=== PATIENT | female | born 1995 | race Caucasian/White ===

== ENCOUNTER 2019-06-26 08:08 | Emergency (ER) | payer SELFPAY ==
[2019-06-26] VITALS (17 sets, daily range): BP systolic 95–145; BP diastolic 66–90; PULSE 74–138; RESP 16; TEMP 36.7; O2SAT 96–98
--- NOTE | 2019-06-26 08:33 | ED.GENADUL_ITS ---
Discharge Plan Disposition Patient Disposition: HOME Condition: Good Discharge Details Chief Complaint: Abd Prob Clinical Impression: Gastric ulcer Primary Care Provider: None,None ED Provider: Rhonda Castillo Home Meds and New Rx's Prescriptions: New omeprazole 40 mg capsule,delayed release(DR/EC) 40 mg PO DAILY Qty: 30 RF: 0 ondansetron HCl [Zofran] 4 mg tablet 4 mg PO Q8H Qty: 10 RF: 0 Continued medroxyprogesterone [Depo-Provera] 150 mg/mL Suspension 150 mg IM [id number] RF: 0 Discharge Instructions Instructions: Peptic Ulcer (ED) Additional Instructions: Avoid ibuprofen, Motrin, Aleve or Advil. Use Tylenol for discomfort if needed. Minimize alcohol and caffeine. Use medication as prescribed. In addition use Zantac [id number]. Follow-up with your primary care doctor for prompt reevaluation as discussed. Return for any alarming symptoms or worsening sooner if needed Medical Decision Making 23-year-old very pleasant female presents with no significant medical problems complaints of abdominal pain in the left upper quadrant and 5 days of vomiting several times per day. Light-colored stool. Patient reports increase in flatulence. On exam patient is well-appearing however has tenderness in the left upper quadrant as well as CVA tenderness on the left. Urine testing is negative. Discussed CT scan with the patient. Will CT scan as well as evaluate labs and urinalysis. Patient offered medications at this time and declines. Will flush with 1 L of IV fluid given patient's 5 days of vomiting and mild tachycardia which is noted. 0905 patient reports tightness in her throat and appears quite anxious after having IV dye push. Patient reports symptoms are significantly improved at this time. Has no change in her voice, itching, rash, wheezing, shortness of breath. Exam is benign. No wheezing on exam. No obvious edema in the throat. Discussed potential for allergic reaction versus side effect of IV dye push. Patient is feeling improved at this time. Discussed use of medications for allergic reaction and she prefers to wait as symptoms are improving. Patient reporting primarily dry mouth at this time. Offered ice chips. Vital signs stable and improved compared to initial vitals. Patient had ultimately no sign of allergic reaction after IV dye and required no interventions. Vital signs remained stable and symptoms entirely resolved Patient CT evaluation unremarkable per wet read, lab evaluation normal Patient ultimately was provided a GI cocktail which did entirely resolve her symptoms. I do feel likely this patient has a gastric ulcer after discussing at length she has been using increased ibuprofen likely contributing. Patient counseled regarding appropriate use of ibuprofen, recommended avoidance temporarily and use of Tylenol. Patient provided prescriptions for omeprazole as well as nausea medication if needed. Encouraged him follow-up with primary care doctor for reevaluation return for any alarming or worsening symptoms. Patient reports understanding and agrees with plan of care [facility] General Date/Time Provider Initiated Documentation: 06/26/19 08:11 . HPI Narrative: Patient presents for complaints of 5 days of vomiting. Patient reports vomiting approximately 3-5 times per day typically at night and in the morning. Patient reports left upper quadrant abdominal pain intermittently. Patient reports increased feeling of gas, belching and flatulence. Patient denies fever chills. Patient does report left-sided back pain. Patient reports change in color to her stool. Reports a light color to the stool no associated mucus or blood. Patient denies any blood in the vomitus. Mostly bilious vomitus and dry heaving. Patient did take a home test which was negative. Patient denies any significant medical history. Takes no medications. Patient does admit to drinking alcohol the day prior to onset of symptoms. Patient denies any difficulty eating or drinking. She does report occasionally vomiting after eating or drinking but primarily in the last 5 days she has been tolerant of food and fluids although has a decrease in appetite. No urinary urgency, frequency or dysuria. Related Data Home Medications Medication Instructions Recorded Confirmed medroxyprogesterone [Depo-Provera] 150 mg IM [id number] 06/26/19 06/26/19 omeprazole 40 mg PO DAILY #30 cap 06/26/19 ondansetron HCl [Zofran] 4 mg PO Q8H #10 tab 06/26/19 Previous Rx's Medication Instructions Recorded omeprazole 40 mg PO DAILY #30 cap 06/26/19 ondansetron HCl [Zofran] 4 mg PO Q8H #10 tab 06/26/19 Allergies Allergy/AdvReac Type Severity Reaction Status Date / Time sulfamethoxazole Allergy Severe Hives Unverified 06/26/19 08:18 [From Bactrim] trimethoprim [From Bactrim] Allergy Severe Hives Unverified 06/26/19 08:18 acetaminophen [From Vicodin] AdvReac Intermediate Nausea Unverified 06/26/19 08:18 codeine AdvReac Intermediate Other (See Unverified 06/26/19 08:18 Comment) hydrocodone [From Vicodin] AdvReac Intermediate Nausea Unverified 06/26/19 08:18 General Stated Complaint: Abd Prob MICHELLE: 3 Review of Systems Review of Systems CONSTITUTIONAL: The patient denies fevers, chills. EYES: Denies vision changes, blurry vision, or eye pain. ENT: Denies hearing changes, tinnitus, vertigo, sore throat. CARDIAC: Denies chest pain, SOB. RESPIRATORY: Denies cough, sputum. Denies difficulty breathing. GASTROINTESTINAL: Left upper quadrant abdominal pain, changes in bowel color; light, + vomiting w/ nausea. GENITOURINARY: Denies dysuria, or frequency of urination. MUSCULOSKELETAL: Denies Joint pain, gait changes. NEUROLOGIC: Denies headaches, Denies focal weakness. Denies numbness. INTEGUMENT: Denies rashes. PSYCHIATRIC: Denies behavior changes. Denies anxiety or depression. ENDOCRINOLOGY: Denies fatigue. PSYCHIATRY: Denies depression, agitation or anxiety [facility] Social History Smoking/Tobacco Use Status: Current every day Tobacco Type: cigarettes Alcohol Intake: current Alcohol Intake frequency: a few times a week Alcohol type: beer Drug use: Never Substance use type: does not use Do you feel safe at home: Yes Do you feel safe in your relationship?: Yes Exam Narrative Exam Narrative: CONST: Healthy appearing patient, in no acute distress. Well hydrated. Alert and alert. HENMT: Head nomocephalic, normal to inspection. Atraumatic. Hearing grossly normal. EYES: General normal appearance. Alignment normal. Eyelids normal. Conjunctiva normal. NECK: Normal visual inspection. FROM. Trachea midline. No Midline tenderness. CHEST: Normal insepection of the chest. RESP: Normal respiratory effort. Speaking full sentences. No cough. No audible wheezing. No retractions. CARDIO: No JVD. MUSCULOSKELETAL: Normal Gait. FROM of all extremities. SKIN: Normal. Dry. No rashes. NEURO: Alert and awake. Speech clear. PSYCH: Normal affect. Cooperative. GI Inspection: normal to inspection and non-distended Palpation: soft, no splenomegaly and tender in the LLQ Auscultation: normal bowel sounds Back/Spine/Pelvis Back: CVA tenderness (lft) Course Vital Signs Temperature 36.7 C 06/26/19 08:13 Pulse 110 H 06/26/19 08:13 Respiratory Rate 16 06/26/19 08:13 Blood Pressure 145/86 H 06/26/19 08:13 Pulse Oximetry 96 06/26/19 08:13 Temperature 36.7 C 06/26/19 08:13 Temperature Source Skin 06/26/19 08:13 Pulse 110 H 06/26/19 08:13 Respiratory Rate 16 06/26/19 08:13 Respiratory Effort Non-Labored 06/26/19 08:16 Blood Pressure 145/86 H 06/26/19 08:13 Blood Pressure Position Sitting 06/26/19 08:13 Pulse Oximetry 96 06/26/19 08:13 Oxygen Delivery Method Room Air 06/26/19 08:13 Oxygen Flow Rate 0 06/26/19 08:13
[2019-06-26] MEDS: Normal Saline 1,000 ML 1000 ML IV (08:40)
[2019-06-26 08:43] LABS: Bilirubin Negative (Negative); Blood Negative (Negative); Clarity Clear (Clear); Glucose Negative (Negative); Ketones Negative (Negative); Leukocyte Esterase Negative (Negative); Nitrite Negative (Negative); Urobilinogen 0.2 EU/dL (Up TO 0.2); pH 8.5 (5-8)
[2019-06-26 08:52] LABS: Abs Immature Grans 0.02 k/cumm (0.0-0.09); Absolute Basophil Count 0.02 k/cumm (0.0-0.2); Absolute Eosinophil Count 0.09 k/cumm (0.0-0.7); Absolute Lymphocyte Count 1.46 k/cumm (1.2-3.4); Absolute Monocyte Count 0.68 k/cumm (0.11-0.7); Absolute Neutrophil Count 5.63 k/cumm (1.2-6.7); Basophils % 0.3; Eosinophils % 1.1; HCT 44.2 % (36.0-46.0); HGB 14.8 g/dL (12.0-15.5); Immature Grans % 0.3; Lymphocytes % 18.5; Mean Corp. HGB Concentration 33.5 g/dL (32.0-36.0); Mean Corpuscular Hemoglobin 31.2 pg (27.0-33.0); Mean Corpuscular Volume 93.1 fL (80-95); Monocytes % 8.6; Neutrophils % 71.2; Platelet Count 334 x1000/uL (130-400); RBC 4.75 m/cumm (4.00-5.20); RBC Distribution Width 13.1 % (11.7-14.6)
[2019-06-26] MEDS: Omnipaque 350 MG/ML 100 ML BTL IJ (08:56)
[2019-06-26 08:58] LABS: Magnesium 2.1 mg/dL (1.8-2.4)
[2019-06-26 09:02] LABS: ALT 17 U/L (14-59); AST 17 U/L (15-37); Albumin 4.3 g/dL (3.4-5.0); Alkaline Phosphatase 80 U/L (46-116); Anion Gap 10.5 mmol/L (3-11); BUN 10 mg/dL (7-18); Bilirubin, Total 0.5 mg/dL (0.2-1.0); CO2 24.5 mmol/L (21.0-32.0); Calcium 8.9 mg/dL (8.5-10.1); Chloride 105 mmol/L (98-107); Glucose 88 mg/dL (70-100); Lipase 62 U/L (73-393); Potassium 3.9 mmol/L (3.5-5.1); Sodium 140 mmol/L (136-145); Total Protein 8.7 g/dL (6.4-8.2)
[2019-06-26 09:06] LABS: Epithelial Cells Few HPF (Negative); RBC 0-2 (0-2); WBC 0-2 HPF (0-5)
[2019-06-26 09:07] LABS: Bacteria Few HPF (Negative); C & S Indicated? No; Casts Negative LPF (Negative); Crystals Negative HPF (Negative); Mucus Heavy (Negative)
--- NOTE | 2019-06-26 09:07 | DI.CT_ITS ---
SYMPTOM/DIAGNOSIS: LUQ ABD PAIN, VOMITING ABDOMEN AND PELVIC CT: There are no prior comparison exams. Images were performed from the lung bases through the ischial tuberosities. The heart size is normal. The lungs are clear. The liver, gallbladder, spleen, pancreas, adrenals and kidneys appear normal. The urinary bladder is nearly empty but unremarkable. The uterus and ovaries are unremarkable. The appendix projects anteriorly in the right lower quadrant and appears normal. There is no bowel dilatation or wall thickening. A small amount of stool is seen in the right colon. The remainder of the colon is decompressed. There is no free air, free fluid or abscess. There is no evidence of adenopathy. No bony abnormalities are seen. IMPRESSION: Negative CT of the abdomen and pelvis.
== END 2019-06-26 11:25 | disposition home or self-care (01) ==
PROVIDERS: Emergency Provider Physician Assistant
DX: K25.3 Acute gastric ulcer without hemorrhage or perforation (principal)
CPT/HCPCS: 36415; 80053; 81025; 83690; 96360; 99285; 74177; 81003; 81015; 83735; 85025; 99284; J3490